=== PATIENT | female | born 1955 | race Caucasian/White ===

== ENCOUNTER 2025-05-02 07:22 | Day surgery (SDC) | payer MEDICARE ==
[2025-05-02] MEDS: Lactated Ringers 1,000 ML IV SCH (08:27)
[2025-05-02] MEDS ORDERED: Propofol 200 MG/20 ML SDV ONE (08:49)
[2025-05-02] MEDS ORDERED: fentaNYL 100 MCG/2 ML SDV ONE (08:50)
== END 2025-05-02 10:49 | disposition home or self-care (01) ==
LOC: JP.SDS 07:22
PROVIDERS: ATTEND Surgery
DX: Z12.11 Encounter for screening for malignant neoplasm of colon (principal); K63.5 Polyp of colon; K57.30 Diverticulosis of large intestine without perforation or abscess without bleeding; I10 Essential (primary) hypertension; E11.9 Type 2 diabetes mellitus without complications
CPT/HCPCS: 00811; 45385; J2704; J3010; J7120